=== PATIENT | female | born 1945 | race Caucasian/White ===

== ENCOUNTER → 2016-07-11 | Outpatient (CLI) | payer MEDICARE ==
[~2016-07-11] MED LIST: CETI10CA PO; CHOL50003 PO; DILT240C PO; GMFB600T PO; MULT-963 PO; OMEG1CAP24 PO; POTA10TA6 PO; TRIA1CAP4 PO; UBID100C17 PO; VIVELLE TD
--- NOTE | 2016-07-11 19:58 | Diagnostic Imaging Report ---
Bilateral screening mammogram The current study was also evaluated with a Computer Aided Detection (CAD) system. Indication: Screening. No current complaints stated on the questionnaire. COMPARISON: 07/09/15. FINDINGS: The breasts are composed of heterogeneously dense parenchyma which may decrease mammographic sensitivity. There is no mass, architectural distortion or suspicious cluster of calcifications. Allowing for technique and positional differences, no suspicious change is seen. IMPRESSION: No significant change. ACR BI-RADS Category 2: Benign findings. Result letter will be mailed to the patient. Note: At least 10% of breast cancer is not imaged by mammography. Dictated by: Dictated on workstation # [id number]
== END ==
LOC: RAD 10:55
PROVIDERS: ATTEND Nurse Practitioner Family
DX: Z12.31 Encounter for screening mammogram for malignant neoplasm of breast (principal)
CPT/HCPCS: 77067

== ENCOUNTER → 2017-08-04 | Outpatient (CLI) | payer MEDICARE ==
--- NOTE | 2017-08-04 15:50 | Diagnostic Imaging Report ---
INDICATION: Routine screening. Comparison is made with prior study from 07/11/2016 and 07/09/2015. The current study was also evaluated with a Computer Aided Detection (CAD) system. FINDINGS: Scattered fibroglandular densities are identified bilaterally. The parenchymal pattern is stable. No mass or malignant-appearing microcalcifications are seen. The axillae are unremarkable. IMPRESSION: No mammographic features suspicious for malignancy are identified. ACR BI-RADS Category 1: Negative. Result letter will be mailed to the patient. Note: At least 10% of breast cancer is not imaged by mammography. Dictated by: Dictated on workstation # [id number]
== END ==
LOC: RAD 13:39
PROVIDERS: ATTEND Nurse Practitioner Family
DX: Z12.31 Encounter for screening mammogram for malignant neoplasm of breast (principal)
CPT/HCPCS: 77067

== ENCOUNTER 2017-09-26 05:40 | Outpatient (CLI) | payer MEDICARE ==
[~2017-09-26] VITALS: Ht 152.4 cm; Wt 65.8 kg
[2017-09-26] MEDS ORDERED: CETI10TA17 PO (16:01)
[2017-09-26] MEDS ORDERED: DILT240C86 PO (16:01)
[2017-09-26] MEDS ORDERED: ESTR0.5T PO (16:01)
[2017-09-26] MEDS ORDERED: GEMF600T3 PO (16:01)
[2017-09-26] MEDS ORDERED: TRIA1CAP4 PO (16:01)
== END 2017-09-26 16:03 ==
LOC: PREOP 05:40
PROVIDERS: ATTEND Internal Medicine
DX: Z01.818 Encounter for other preprocedural examination (principal); Z12.11 Encounter for screening for malignant neoplasm of colon; Z80.0 Family history of malignant neoplasm of digestive organs

== ENCOUNTER → 2017-09-29 | Day surgery (SDC) | payer MEDICARE ==
--- NOTE | 2017-09-26 06:12 | HISTORY AND PHYSICAL ---
DATE OF SERVICE: COLONOSCOPY H AND P HISTORY OF PRESENT ILLNESS: The patient is a 71-year-old white female, referred by Dr. Rivera, for surveillance colonoscopy. She last underwent colonoscopy 5 years ago and at that time, he had no neoplasia. Her grandmother was diagnosed with colon cancer in her 70s. She has had several siblings with colon polyps. She has also had several siblings that have had to undergo colon resection for severe bouts of diverticulitis. She reports that she has been having some intestinal bloating. She denies any problems with bright red blood per rectum but has felt a bump and has been having more difficulty with mucus and a little bit of intermittent seepage. She thinks that she may have a hemorrhoid. She denies any problems with rectal pain or tenesmus. She reports that her weight has been stable and energy level has been at her norm. She has recently given hyoscyamine sublingual tablets 0.125. They do help when she has abdominal cramping as she will sometimes have stool urgency and does get relief of abdominal discomfort with the passage of stool as well. PAST MEDICAL HISTORY: Significant for hyperlipidemia and hypertension with no reported history of coronary artery disease. FAMILY HISTORY: As noted in the HPI in addition that her father of an [facility] at age 61, mother of coronary artery disease complications at the age of 76. SOCIAL HISTORY: She is retired. She has a [id number] smoking history, but quit at the age of 42. She averages one mixed drink four to five times weekly. MEDICATIONS ON ADMISSION: Include gemfibrozil 600 mg b.i.d., triamterene and hydrochlorothiazide 37.5/25 daily, Cartia XT 240 mg daily, estradiol 0.5 mg daily, Zyrtec 10 mg daily, and Restasis eye drops 1 drop b.i.d. PHYSICAL EXAMINATION: GENERAL: Reveals a pleasant, articulate white female, in no acute distress. VITAL SIGNS: Blood pressure is 128/64, heart rate 74 and regular. HEENT: Unremarkable. Oral cavity reveals a Mallampati class 2 configuration without erythema or exudate. NECK: Revealed no JVD, adenopathy or bruits. CHEST: Clear to auscultation. CARDIOVASCULAR: Reveals a regular rate and rhythm without murmur, S3 or S4. ABDOMEN: Soft, supple without mass or organomegaly. She has some mild left lower quadrant discomfort to palpation without rebound or guarding. No bruits are noted. EXTREMITIES: Reveal no cyanosis, clubbing or edema. ASSESSMENT: The patient was set up for surveillance colonoscopy due to bowel habit change as well as the family history for colon cancer, index case being her grandmother diagnosed in her early 70s. She also has several siblings that have had colonic polyps removed. Due to the fact that her symptoms suggest a component of irritable bowel disease with this and the fact that she has known moderate diverticular disease, we will be performing procedure under Diprivan administered by Anesthesia. The patient's electronic medical record was reviewed as well. I thank you for the referral of this pleasant lady. Job ID: [id number] DocumentID: [id number] Dictated Date: 09/22/2017 10:48:29 Receiving Teller Date: 09/22/2017 11:30:36 Dictated By: ALBINO KEY MD MTDD
[~2017-09-29] VITALS: Ht 152.4 cm; Wt 65.8 kg
[~2017-09-29] MED LIST changes: +CETI10TA17 PO; +D5 LR IV SOLUTION 1,000 ML IV ONE; +D5 LR IV SOLUTION 1,000 ML IV STA; +DILT240C86 PO; +ESTR0.5T PO; +GEMF600T3 PO; +LIDOCAINE JELLY 2% (XYLOCAINE) 5 ML TUBE MM PRN; +LIDOCAINE JELLY 2% (XYLOCAINE) 5 ML TUBE ONE; +MIDAZOLAM 2 MG/2 ML (VERSED) VIAL ONE; +fentaNYL INJECTION 100 MCG/2 ML AMP ONE; +proPOfol 200 MG/20 ML (DIPRIVAN) VIAL IV ONE
[2017-09-29 08:01] VITALS: BP 142/76
[2017-09-29 08:05] VITALS: BP 142/76
[2017-09-29] MEDS: fentaNYL INJECTION 100 MCG/2 ML AMP IVP PRN ×2 (08:53→08:57)
[2017-09-29] MEDS: MIDAZOLAM 2 MG/2 ML (VERSED) VIAL IVP PRN ×2 (08:55→08:59)
--- NOTE | 2017-09-29 09:09 | Pre-Op Note & Conscious Sedat ---
Pre-Operative Progress Note H&P Reviewed The H&P was reviewed, patient examined and no changes noted. Date H&P Reviewed: Sep 29, 2017 Time H&P Reviewed: 07:55 Conscious Sedation Pre-Proced ASA Class: 2 Airway Mallampati Classification: ([place] appropriate class) I. II. III, IV Lungs Heart ASA score ASA 1: a normal healthy patient ASA 2: a patient with a mild systemic disease (mid diabetes, controlled hypertension, obesity ASA 3: a patient with a severe systemic disease that limits activity (angina , COPD, prior Myocardial infarction) ASA 4: a patient with an incapacitating disease that is a constant threat to life (CHF, renal failure) ASA 5: a moribund patient not expected to survive 24 hrs. (ruptured aneurysm) ASA 6: a declared brain patient whose organs are being harvested. For emergent operations, add the letter E after the classification Grade 2 Sedation Plan: Analgesia, Amnesia, Plan communicated to team members, Discussed options with patient/fam, Discussed risks with patient/fam Note The patient is an appropriate candidate to undergo the planned procedure, sedation, and anesthesia. The patient immediately re-assessed prior to indication. ALBINO KEY MD Sep 29, 2017 09:08
[2017-09-29 10:05] VITALS: BP 111/67
[2017-09-29 10:40] VITALS: BP 105/88
--- NOTE | 2017-10-05 10:23 | OPERATIVE REPORT ---
DATE OF SERVICE: 09/29/2017 COLONOSCOPY HISTORY AND PHYSICAL INDICATION FOR THE PROCEDURE: Screening colonoscopy. The patient was placed in left lateral decubitus position. Prior to doing colonoscopy, a digital rectal evaluation was performed. Anal sphincter tone was normal and the perianal reflexes were intact. The patient has significant perianal skin fold redundancy without overt evidence for rectal prolapse. No significant internal or external hemorrhoids were noted. No other abnormalities were noted on digital inspection of the anal canal or distal rectal vault. The colonoscope was inserted into the rectum and under direct visualization advanced to the cecum. The patient is quite sensitive to air insufflation and colonic manipulation, which is aggravated by severe diverticular disease confined to the sigmoid colon. There was no evidence for diverticulitis. Did have to consult anesthesiology for Diprivan to perform the procedure for patient comfort. The rectal vault was unremarkable. The descending colon, splenic flexure, transverse colon, hepatic flexure, ascending colon and cecum were unremarkable. ASSESSMENT: Severe diverticular disease confined to the sigmoid colon is present without evidence for diverticulitis. There is no evidence for neoplasia on today's evaluation. Considering her severe diverticular disease and that this is her second negative colonoscopy, I feel that the risk of perforation for future screening colonoscopies would be greater than potential benefit. For this reason, I am not advising future screening colonoscopy. She does have significant redundancy of perianal skin folds, possibly due to past hemorrhoids, but there is no evidence for active internal or external hemorrhoids at the time of this procedure. I thank you for the referral of this pleasant lady. Sincerely, Job ID: [id number] DocumentID: [id number] Dictated Date: 09/29/2017 13:12:58 Material Expeditor Date: 09/29/2017 16:35:58 Dictated By: ALBINO KEY MD <Dictated by ALBINO KEY MD> <Electronically signed by ALBINO KEY MD> 10/01/17 1958
== END | disposition home or self-care (01) ==
LOC: ENDO 07:33
PROVIDERS: ATTEND Internal Medicine
DX: Z12.11 Encounter for screening for malignant neoplasm of colon (principal); K57.30 Diverticulosis of large intestine without perforation or abscess without bleeding; I10 Essential (primary) hypertension; Z80.0 Family history of malignant neoplasm of digestive organs; Z83.71 Family history of colonic polyps; Z87.891 Personal history of nicotine dependence; Z79.899 Other long term (current) drug therapy

== ENCOUNTER → 2018-08-06 | Outpatient (CLI) | payer MEDICARE ==
[~2018-08-06] MED LIST changes: -D5 LR IV SOLUTION 1,000 ML IV ONE; -D5 LR IV SOLUTION 1,000 ML IV STA; -GEMF600T3 PO; +GEMF600T8 PO; -LIDOCAINE JELLY 2% (XYLOCAINE) 5 ML TUBE MM PRN; -LIDOCAINE JELLY 2% (XYLOCAINE) 5 ML TUBE ONE; -MIDAZOLAM 2 MG/2 ML (VERSED) VIAL ONE; -fentaNYL INJECTION 100 MCG/2 ML AMP ONE; -proPOfol 200 MG/20 ML (DIPRIVAN) VIAL IV ONE
--- NOTE | 2018-08-06 12:36 | Diagnostic Imaging Report ---
INDICATION: Routine screening. COMPARISON: 08/04/2017 and 07/11/2016. TECHNIQUE: 2D and 3D bilateral screening mammography was performed with CAD. FINDINGS: Both breasts are heterogeneously dense, limiting the sensitivity of mammography. A slightly nodular density is identified in the left breast at the nipple line on the CC view at posterior depth. No definite corresponding density on the MLO view is identified. Additional views are recommended. No other mass or malignant appearing microcalcifications are seen. The axillae are unremarkable. IMPRESSION: Left breast density. Additional views including spot compression and rolled CC views are recommended for further evaluation. ACR BI-RADS Category 0: Incomplete. (Needs additional imaging evaluation). Result letter will be mailed to the patient. Note: At least 10% of breast cancer is not imaged by mammography. Dictated by: Dictated on workstation # [id number]
== END ==
LOC: RAD 11:10
PROVIDERS: ATTEND Nurse Practitioner Family
DX: Z12.31 Encounter for screening mammogram for malignant neoplasm of breast (principal); R92.8 Other abnormal and inconclusive findings on diagnostic imaging of breast
CPT/HCPCS: 77067

== ENCOUNTER → 2018-08-20 | Outpatient (CLI) | payer MEDICARE ==
--- NOTE | 2018-08-20 14:31 | Diagnostic Imaging Report ---
INDICATION: Left breast density. Patient presents for additional views. TECHNIQUE: 2D and 3D unilateral left diagnostic mammography was performed. This included rolled CC, spot compression CC, and conventional 90 degree lateral views. The current study was evaluated with a Computer Aided Detection (CAD) system. FINDINGS: There is mild residual density in the lower and slightly outer left breast approximately 8 cm from the nipple. This may represent fibroglandular tissue. No suspicious calcifications are seen. IMPRESSION: Mild residual density in the posterior left breast at inferior depth slightly lateral to the nipple line. Further evaluation with ultrasound is recommended and will be performed today. ACR BI-RADS Category 0: Incomplete. (Needs additional imaging evaluation). Result letter will be mailed to the patient. Note: At least 10% of breast cancer is not imaged by mammography. Dictated by: Dictated on workstation # [id number]
--- NOTE | 2018-08-20 14:32 | Diagnostic Imaging Report ---
INDICATION: Left breast density. COMPARISON: Correlation is made with the diagnostic mammogram from earlier this same day as well as a screening mammogram from 08/06/2018. FINDINGS: Sonographic interrogation of the lower left breast was performed. No sonographic abnormality is seen. No solid or cystic mass is detected. IMPRESSION: No sonographic abnormality is seen. The patient may return to routine annual screening mammography. ACR BI-RADS Category 2: Benign findings. Dictated by: Dictated on workstation # [id number]
== END ==
LOC: RAD 13:11
PROVIDERS: ATTEND Nurse Practitioner Family
DX: R92.8 Other abnormal and inconclusive findings on diagnostic imaging of breast (principal)
CPT/HCPCS: 76642

== ENCOUNTER 2020-09-24 06:32 | Outpatient (CLI) | payer MEDICARE ==
[~2020-09-24] VITALS: Ht 152.4 cm; Wt 61.4 kg
[~2020-09-24 06:32] MED LIST changes: -GEMF600T8 PO; +GEMF600T88 PO
== END 2020-09-24 13:10 | disposition home or self-care (01) ==
LOC: PREOP 06:32
PROVIDERS: ATTEND Specialist
DX: Z01.818 Encounter for other preprocedural examination (principal)

== ENCOUNTER 2020-10-02 11:07 | Day surgery (SDC) | payer MEDICARE ==
[~2020-10-02] VITALS: Ht 152 cm; Wt 61.4 kg
[2020-10-02] MEDS ORDERED: POVIDONE (BETADINE) OPHTH SOLN 5% 30 ML OP ONE (11:30)
[2020-10-02] MEDS ORDERED: LIDOCAINE PF 1% 2 ML VIAL IR PRN (11:30)
[2020-10-02] MEDS ORDERED: TIMOLOL MALEATE 0.5% 5 ML (TIMOPTIC) BTL OU PRN (11:30)
[2020-10-02] MEDS ORDERED: MOXIFLOXACIN OPHTH SOLN 5 MG/ML 0.3 ML SYRINGE OP ONE (11:30)
[2020-10-02] MEDS: TETRACAINE 0.5% OPHTH SOLN 4 ML BTL (SINGLE DOSE ONLY) OU PRN ×4 (11:31→11:50)
[2020-10-02] MEDS ORDERED: MIDAZOLAM 2 MG/2 ML (VERSED) VIAL ONE ×2 (11:33→12:03)
[2020-10-02 11:35] VITALS: BP 135/82
[2020-10-02] MEDS: PHENYLEPHRINE 10% OPHTH (NEO-SYN) 5 ML BTL OU SCH ×3 (11:38→11:50)
[2020-10-02] MEDS: TROPICAMIDE 1% OPH SOLN (MYDRIACYL) 15 ML BTL OP SCH ×3 (11:38→11:50)
--- NOTE | 2020-10-02 12:07 | Ophthalmologist Pre-Op Note ---
Pre-Operative Progress Note H&P Reviewed The H&P was reviewed, patient examined and no changes noted. Date H&P Reviewed: Oct 02, 2020 Time H&P Reviewed: 12:07 Pre-Op Dx Cataract, Left Eye JENNIFER TAYLOR MD Oct 02, 2020 12:07
--- NOTE | 2020-10-02 12:31 | Ophthalmology Operative Report ---
Cataract removal/placement IOL PREOPERATIVE DIAGNOSIS: Cataract Left Eye POSTOPERATIVE DIAGNOSIS: Cataract Left Eye PROCEDURE: Cataract removal and placement of posterior chamber implant, left eye SURGEON: Lacho Taylor ANESTHESIA: Topical with sedation COMPLICATIONS: None ESTIMATED BLOOD LOSS: Minimal DESCRIPTION OF PROCEDURE: After proper informed consent was obtained, the patient, a 74 female, was taken to the Operating Room and the left eye was anesthetized with tetracaine. The left eye was then prepped and draped in the usual manner. A wire lid speculum was placed. A paracentesis was made at the left hand position. Preservative free lidocaine was injected into the anterior chamber followed by viscoelastic. A clear corneal incision was made in the temporal position. A capsulorrhexis was preformed and the central nuclear and cortical material were removed. The posterior capsule was polished and an Nav 23.5 AU00T0 was placed into the capsular bag. The residual viscoelastic was aspirated and balanced saline solution was injected into the anterior chamber. Moxifloxacin was injected into the anterior chamber. The wound was checked and found to be water tight. The patient tolerated the procedure well without complications. LACHO TAYLOR MD Oct 02, 2020 12:31
[2020-10-02 12:39] VITALS: BP 124/72
[2020-10-02] MEDS ORDERED: ROCURONIUM 10 MG/ML 5 ML SYRINGE IV ONE (15:13)
--- NOTE | 2020-10-02 16:03 | Anesthesia-General Post-Op ---
MAC Patient Condition Mental Status/LOC: Same as Preop Cardiovascular: Satisfactory Nausea/Vomiting: Absent Respiratory: Satisfactory Pain: Controlled Complications: Absent Post Op Complications Complications None Follow Up Care/Instructions Patient Instructions None needed. Anesthesiology Discharge Order Discharge Order Patient was seen after the procedure and she was doing well, no complaints, stable vital signs, no apparent adverse anesthesia problems. PABLO AMBROCIO 18, 2021 16:03
== END 2020-10-02 12:42 ==
LOC: SDC 11:07
PROVIDERS: ATTEND Specialist
DX: H25.12 Age-related nuclear cataract, left eye (principal); I10 Essential (primary) hypertension; Z79.899 Other long term (current) drug therapy; Z87.891 Personal history of nicotine dependence
CPT/HCPCS: 66984; V2632

== ENCOUNTER → 2020-10-22 | Outpatient (CLI) | payer MEDICARE ==
--- NOTE | 2020-10-23 09:36 | Diagnostic Imaging Report ---
INDICATION: Routine screening. COMPARISON is made with prior mammograms 12/25/2019 and 08/06/2018. 2-D and 3-D bilateral screening mammography was performed with CAD. Both breasts are heterogeneously dense, limiting the sensitivity of mammography. The parenchymal pattern is stable. No mass or malignant appearing microcalcifications are seen. Axillae are unremarkable. IMPRESSION: BI-RADS Category 1 No mammographic features suspicious for malignancy are identified. ACR BI-RADS Category 1: Negative. Result letter will be mailed to the patient. Note: At least 10% of breast cancer is not imaged by mammography. Dictated by: Dictated on workstation # [id number]
== END ==
LOC: RAD 11:00
PROVIDERS: ATTEND Family Medicine
DX: Z12.31 Encounter for screening mammogram for malignant neoplasm of breast (principal)
CPT/HCPCS: 77063; 77067

== ENCOUNTER → 2021-11-02 | Outpatient (CLI) | payer MEDICARE ==
[~2021-11-02] MED LIST changes: +TRIA1CAP84 PO
--- NOTE | 2021-11-02 13:05 | Diagnostic Imaging Report ---
INDICATION: Routine screening. COMPARISON: 10/22/2020 and 12/25/2019. TECHNIQUE: 2D and 3D bilateral screening mammography was performed with CAD. FINDINGS: Both breasts are heterogeneously dense, limiting the sensitivity of mammography. The parenchymal pattern is stable. No mass or malignant-appearing microcalcifications are seen. The axillae are unremarkable. IMPRESSION: No mammographic features suspicious for malignancy are identified. ACR BI-RADS Category 1: Negative. Result letter will be mailed to the patient. Note: At least 10% of breast cancer is not imaged by mammography. Dictated by: Dictated on workstation # [id number]
--- NOTE | 2021-11-02 14:26 | Diagnostic Imaging Report ---
INDICATION: Postmenopausal. COMPARISON: None. FINDINGS: The bone mineral density of the spine, the hips, and the femoral necks was measured. The total T-score for the spine is 1.6. The total T-score for the left hip is 2.4 and for the right hip 2.0. The T-score for the left femoral neck is 1.1 and for the right femoral neck is 0.6. All of these values are within normal limits. AP Spine L1-L4: [BMD (g/cm2): 1.394] [T-Score: 0.6] [Z-Score: 3.4] [BMD Previous: na] [BMD % Change: na] LT Hip Neck: [BMD (g/cm2): 1.192] [T-Score: 1.1] [Z-Score: 3.0] LT Hip Total: [BMD (g/cm2):1.311] [T-Score:2.4] [Z-Score: 4.1] [BMD Previous: na] [BMD % Change: na] RT Hip Neck: [BMD (g/cm2):1.121] [T-Score:0.6] [Z-Score:2.5] RT Hip Total: [BMD (g/cm2):1.256] [T-score:2.0] [Z-Score:3.7] [BMD Previous:na] [BMD % Change:na] *Indicates significant change from prior examination based on 95% confidence level. World Health Organization criteria for BMD interpretation classify patients as Normal (T-score at or above -1.0), Osteopenic (T-score between -1.0 and -2.5) or Osteoporotic (T-score at or below -2.5). LIMITATIONS AND MODIFICATION: None. FRACTURE RISK (FRAX SCORE): The ten year probability of (%): Major Osteoporotic Fracture: [na] Hip Fracture: [na] IMPRESSION: 1. The bone mineral density of the spine, the hips, and the femoral necks is within normal limits. 2. See below National Osteoporosis Foundation guidelines on when to potentially initiate pharmacologic therapy. Based on the National Osteoporosis Foundation Guidelines, pharmacologic treatment should be initiated in any of the following, unless clinical conditions suggest otherwise: * Any patient with prior fragility fracture of the hip or vertebrae. A spine fracture indicates 5X risk for subsequent spine fracture and 2X risk for subsequent hip fracture. * Osteoporosis (T-score <-2.5). * Postmenopausal women and men age 50 and older with low bone mass/osteopenia (T-score between -1.0 and -2.5) by DXA and 10-year major osteoporotic fracture greater than 20% or a 10-year probability of hip fracture greater than 3%. These fracture risks are supplied above in the FRAX score, if applicable. * Clinician judgement and/or patient preferences may indicate treatment for people with 10-year fracture probabilities above or below these levels. Dictated by: Dictated on workstation # [id number]
== END ==
LOC: RAD 10:09
PROVIDERS: ATTEND Family Medicine
DX: Z12.31 Encounter for screening mammogram for malignant neoplasm of breast (principal); Z78.0 Asymptomatic menopausal state
CPT/HCPCS: 77063; 77067; 77080

== ENCOUNTER → 2023-02-15 | Outpatient (CLI) | payer MEDICARE ==
[~2023-02-15] MED LIST changes: -ESTR0.5T PO; +ESTR0.5T2 PO
--- NOTE | 2023-02-15 14:43 | Diagnostic Imaging Report ---
INDICATION: ACUTE HIP PAIN, RIGHT,SPRAIN OF SACROILIAC LIGAMENT COMPARISON: None. FINDINGS: 2 views of the right hip were obtained and show no fractures, dislocations, or other acute bony abnormalities. Joint spaces are well maintained throughout. The soft tissues appear unremarkable. No unexpected radiopaque foreign bodies are identified. IMPRESSION: Unremarkable radiographic exam of the right hip. Dictated by: Dictated on workstation # [id number]
--- NOTE | 2023-02-15 14:52 | Diagnostic Imaging Report ---
INDICATION: ACUTE HIP PAIN, RIGHT,SPRAIN OF SACROILIAC LIGAMENT COMPARISON: None. FINDINGS: Multiple radiographic views of the sacrum and coccyx were obtained and show no fractures, dislocations, or other acute bony abnormalities. Joint spaces are well maintained throughout. The soft tissues appear unremarkable. No unexpected radiopaque foreign bodies are identified. IMPRESSION: Unremarkable radiographic exam of the sacrum and coccyx. Dictated by: Dictated on workstation # [id number]
== END ==
LOC: RAD 11:21
PROVIDERS: ATTEND Family Medicine
DX: M25.551 Pain in right hip (principal)
CPT/HCPCS: 72220; 73502